=== PATIENT | female | born 1975 | race Caucasian/White ===

== ENCOUNTER 2016-11-24 18:44 | Emergency (ER) | payer BC ==
[~2016-11-24] VITALS: Ht 175.3 cm; Wt 74.4 kg
--- NOTE | 2016-11-24 18:46 | NUR ---
pt ambulatory to er bed 09 c/o severe lt upper arm pain s/p mechanical fall. no obvious deformity noted. denies head trauma. stable vitals awaiting md espinosa.
[2016-11-24] MEDS ORDERED: ACETAMINOPHEN ES 500 MG TABLET ONE (18:52)
--- NOTE | 2016-11-24 18:57 | NUR ---
tylenol 1G given PO per ermd verbal order.
--- NOTE | 2016-11-24 19:07 | NUR ---
radiology at bedside for l humerus and l elbow xray,
[2016-11-24 20:19] VITALS: BP 132/77
--- NOTE | 2016-11-24 20:19 | NUR ---
Patient discharged to home in stable condition. Written and verbal after care instructions given. Patient verbalizes understanding of instruction.
== END 2016-11-24 20:20 | disposition home or self-care (01) ==
LOC: ER 18:45
DX: S50.02XA Contusion of left elbow, initial encounter (principal); W01.0XXA Fall on same level from slipping, tripping and stumbling without subsequent striking against object, initial encounter; Y93.89 Activity, other specified; Y92.89 Other specified places as the place of occurrence of the external cause; Y99.8 Other external cause status
CPT/HCPCS: 73080-TC; A4606; Z7610

== ENCOUNTER 2017-04-14 17:37 | Emergency (ER) | payer BC ==
[~2017-04-14] VITALS: Ht 175.3 cm; Wt 73.9 kg
[2017-04-14 17:43] VITALS: BP 111/75
== END 2017-04-14 18:35 | disposition home or self-care (01) ==
LOC: ER 17:39
DX: M25.561 Pain in right knee (principal); W01.0XXA Fall on same level from slipping, tripping and stumbling without subsequent striking against object, initial encounter; Y92.89 Other specified places as the place of occurrence of the external cause; Y93.89 Activity, other specified; Y99.8 Other external cause status
CPT/HCPCS: 99283; A4606; Z7610

== ENCOUNTER 2017-08-31 21:57 | Emergency (ER) | payer BC ==
[~2017-08-31] VITALS: Ht 165.1 cm; Wt 63.5 kg
--- NOTE | 2017-08-31 22:21 | NUR ---
PT BIB SELF, PT C/O SINUS INFECTION WITH HEADACHE X 6 DAYS. PT AMBULATORY TO ER BED 3. PT AOX3 RR EVEN AND UNLABORED. NO SOB NOTED. NAD NOTED. NO NVD AT THIS TIME. PT GOWNED AND PLACED ON MONITOR WAITING FOR MD MOLINA.
[2017-08-31] MEDS ORDERED: PSEUDOEPHEDRINE HCL 30 MG TABLET PO ONE (22:30)
[2017-08-31] MEDS ORDERED: PSEUDOEPHEDRINE HCL 30 MG TABLET ONE (22:47)
--- NOTE | 2017-08-31 22:52 | NUR ---
Patient discharged to home in stable condition. Written and verbal after care instructions given. Patient verbalizes understanding of instruction ambulatory with a steady gait. instructed pt not to drive. pt verbalize understanding.
[2017-08-31 22:54] VITALS: BP 124/78
== END 2017-08-31 22:55 | disposition home or self-care (01) ==
LOC: ER 21:57
DX: J32.9 Chronic sinusitis, unspecified (principal)
CPT/HCPCS: 99283; A4606; Z7610

== ENCOUNTER 2017-11-21 12:02 | Emergency (ER) | payer BC, MEDICAID ==
[~2017-11-21] VITALS: Ht 175.3 cm; Wt 76.2 kg
[2017-11-21 12:02] VITALS: BP 117/77
[2017-11-21] MEDS ORDERED: HYDROCODONE BIT/HOMATROPINE 5 ML UDC ONE (13:00)
[2017-11-21] MEDS ORDERED: predniSONE 20 MG TABLET ONE (13:00)
[2017-11-21] MEDS ORDERED: HYDROCODONE BIT/HOMATROPINE 5 ML UDC PO ONE (13:00)
[2017-11-21] MEDS ORDERED: IPRATROPIUM NEB FS 0.5 MG/2.5 ML AMPUL.NEB NEB ONE (13:00)
[2017-11-21] MEDS ORDERED: predniSONE 20 MG TABLET PO ONE (13:00)
[2017-11-21] MEDS ORDERED: ALBUTEROL FS 2.5 MG/3 ML VIAL.NEB CONTNEB ONE (13:00)
[2017-11-21] MEDS ORDERED: IPRATROPIUM NEB FS 0.5 MG/2.5 ML AMPUL.NEB ONE (13:16)
[2017-11-21] MEDS ORDERED: ALBUTEROL FS 2.5 MG/3 ML VIAL.NEB ONE (13:16)
== END 2017-11-21 14:04 | disposition home or self-care (01) ==
LOC: ER 12:03
DX: J40 Bronchitis, not specified as acute or chronic (principal)
CPT/HCPCS: 71045; 94644; 99285; A4606; J7512; Z7610

== ENCOUNTER 2017-12-24 08:40 | Emergency (ER) | payer BC, MEDICAID, OTHER ==
[~2017-12-24] VITALS: Ht 175.3 cm; Wt 79.4 kg
[2017-12-24 08:51] VITALS: BP 108/72
[2017-12-24] MEDS ORDERED: IBUPROFEN 600 MG TABLET PO ONE ×2 (09:00→09:06)
== END 2017-12-24 10:25 | disposition home or self-care (01) ==
LOC: ER 08:44
DX: J02.9 Acute pharyngitis, unspecified (principal)
CPT/HCPCS: 86403-TC; 87070-TC; A4606; Z7610